=== PATIENT | male | born 1995 | race Caucasian/White ===

== ENCOUNTER 2017-11-23 21:09 | Emergency (ER) | payer SELFPAY ==
[~2017-11-23] VITALS: Ht 170.2 cm; Wt 65.9 kg
[2017-11-23 21:11] VITALS: BP 120/60; PULSE 100; RESP 15; TEMP 100.6; O2SAT 99
[2017-11-23] MEDS ORDERED: ACETAMINOPHEN 325 MG TAB PO ONE (21:30)
[2017-11-23 21:52] LABS: AUTOMATED NEUTROPHIL # 14.2 TH/MM3 (1.8-7.7); BASOPHIL % 0.2 % (0.0-2.0); EOSINOPHIL # 0.1 TH/MM3 (0-0.4); EOSINOPHIL % 0.4 % (0.0-4.0); HEMOGLOBIN 12.9 GM/DL (13.0-17.0); LYMPHOCYTE # 2.3 TH/MM3 (1.0-4.8); MEAN CELL VOLUME 91.8 FL (80.0-100.0); MEAN CORPUSCULAR HEMOGLOBIN 32.1 PG (27.0-34.0); MEAN PLATELET VOLUME 7.5 FL (7.0-11.0); MONO % 6.1 % (0.0-8.0); MONOCYTE # 1.1 TH/MM3 (0-0.9); NEUT % 80.3 % (16.0-70.0); PLATELET COUNT 268 TH/MM3 (150-450); RED BLOOD COUNT 4.03 MIL/MM3 (4.50-5.90); RED CELL DISTRIBUTION WIDTH 12.1 % (11.6-17.2); WHITE BLOOD COUNT 17.6 TH/MM3 (4.0-11.0)
[2017-11-23 22:02] LABS: BICARBONATE 28.6 MEQ/L (21.0-32.0); CALCIUM 8.2 MG/DL (8.5-10.1); CREATININE 0.84 MG/DL (0.60-1.30)
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
[2017-11-24 01:21] VITALS: BP 110/59; PULSE 88; RESP 16; TEMP 98; O2SAT 99
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
[2017-11-24] MEDS ORDERED: SODIUM CHLOR 0.9% 1000 ML INJ 1,000 ML IV ONE (02:15)
[2017-11-24] MEDS ORDERED: AZITHROMYCIN PWD FOR SUSP 1 GM PACKET PO ONE ×2 (02:15→03:00)
[2017-11-24] MEDS ORDERED: cefTRIAXone INJ 1,000 MG in SODIUM CHLORIDE 0.9% INJ 100 ML IV ONE (02:15)
[2017-11-24 02:49] LABS: BILIRUBIN, URINE NEG (NEG); BLOOD, URINE NEG (NEG); GLUCOSE,URINE NEG (NEG); KETONE, URINE NEG (NEG); MUCUS URINE FEW /lpf (OCC); NITRITE,URINE NEG (NEG); URINE COLOR YELLOW (YELLW/STRAW); URINE LEUKOCYTE ESTERASE LARGE (NEG)
[2017-11-24] MEDS ORDERED: HYDR-3516 PO (02:58)
[2017-11-24] MEDS ORDERED: DOXY100C PO (02:58)
[2017-11-24] MEDS ORDERED: ACETAMINOPHEN/HYDROcodone 325 MG/5 MG TAB PO ONE (03:00)
[2017-11-24] MEDS ORDERED: LIDOCAINE HCL 1% 50 ML VIAL IM ONE (03:00)
[2017-11-24 04:17] VITALS: BP 109/63; PULSE 74; RESP 18; TEMP 98.8; O2SAT 98
== END 2017-11-24 06:08 | disposition home or self-care (01) ==
LOC: NEPC 21:09
DX: S39.94XA Unspecified injury of external genitals, initial encounter (principal); N39.0 Urinary tract infection, site not specified; W22.8XXA Striking against or struck by other objects, initial encounter; Y93.55 Activity, bike riding
CPT/HCPCS: 76870; 80048; 81001; 83605; 85025; 87086; 87491; 87591; 93975; 96372; 99284; J0696

== ENCOUNTER 2017-11-25 18:47 | Observation (INO) | payer SELFPAY ==
[~2017-11-25] VITALS: Ht 165.1 cm; Wt 78.0 kg
[~2017-11-25 18:47] MED LIST: DOXY100C PO; HYDR-3516 PO
[2017-11-25 18:48] VITALS: BP 119/67; PULSE 104; RESP 26; TEMP 99.2; O2SAT 97
[2017-11-25] MEDS ORDERED: LEVOFLOXACIN 500 MG PREMIX INJ 100 ML IV ONE (20:00)
[2017-11-25] MEDS ORDERED: HYDROmorphone HCL PF 2 MG/ML VIAL IV PUSH ONE ×2 (20:00→21:30)
[2017-11-25] MEDS ORDERED: ONDANSETRON HCL 4 MG/2 ML VIAL IV PUSH ONE (20:00)
--- NOTE | 2017-11-25 20:17 | RADRPT ---
EXAM DATE/TIME: 11/25/2017 20:06 [facility] COMPARISON: No previous studies available for comparison. INDICATIONS : Chest discomfort. MEDICAL HISTORY : None. SURGICAL HISTORY : None. ENCOUNTER: Initial ACUITY: 1 day PAIN SCORE: 10 LOCATION: Bilateral chest FINDINGS: A single view of the chest demonstrates the lungs to be symmetrically aerated without evidence of mas s, infiltrate or effusion. The cardiomediastinal contours are unremarkable. Osseous structures are intact. CONCLUSION: 1. No acute cardiopulmonary disease. Saad Jones MD on November 25, 2017 at 20:15 Board Certified Radiologist. This report was verified electronically.
[2017-11-25 20:51] LABS: AUTOMATED NEUTROPHIL # 13.5 TH/MM3 (1.8-7.7); BASOPHIL # 0.1 TH/MM3 (0-0.2); BASOPHIL % 0.4 % (0.0-2.0); EOSINOPHIL # 0.1 TH/MM3 (0-0.4); EOSINOPHIL % 0.4 % (0.0-4.0); HEMATOCRIT 38.2 % (39.0-51.0); HEMOGLOBIN 13.2 GM/DL (13.0-17.0); LYMPH % 15.7 % (9.0-44.0); LYMPHOCYTE # 2.6 TH/MM3 (1.0-4.8); MEAN CELL VOLUME 92.7 FL (80.0-100.0); MEAN CORPUSCULAR HEMOGLOBIN 31.9 PG (27.0-34.0); MEAN CORPUSCULAR HGB CONC 34.4 % (32.0-36.0); MEAN PLATELET VOLUME 7.8 FL (7.0-11.0); MONO % 2.8 % (0.0-8.0); MONOCYTE # 0.5 TH/MM3 (0-0.9); NEUT % 80.7 % (16.0-70.0); PLATELET COUNT 293 TH/MM3 (150-450); RED BLOOD COUNT 4.12 MIL/MM3 (4.50-5.90); RED CELL DISTRIBUTION WIDTH 12.1 % (11.6-17.2); WHITE BLOOD COUNT 16.7 TH/MM3 (4.0-11.0)
[2017-11-25 21:00] VITALS: BP 124/66; PULSE 88; RESP 22; O2SAT 98
[2017-11-25 21:15] LABS: ALBUMIN 2.7 GM/DL (3.4-5.0); ALT (GPT) 16 U/L (12-78); AST (GOT) 12 U/L (15-37); BICARBONATE 28.3 MEQ/L (21.0-32.0); BLOOD UREA NITROGEN 9 MG/DL (7-18); CALCIUM 8.5 MG/DL (8.5-10.1); CHLORIDE 103 MEQ/L (98-107); CREATININE 0.75 MG/DL (0.60-1.30); GLOMERULAR FILTRATION RATE 129 ML/MIN (>89); GLUCOSE,RANDOM 84 MG/DL (74-106); MAGNESIUM 2.1 MG/DL (1.5-2.5); SODIUM (NA) 137 MEQ/L (136-145)
[2017-11-25 21:17] LABS: ALKALINE PHOSPHATASE 94 U/L (45-117); TOTAL BILIRUBIN ADULT 0.3 MG/DL (0.2-1.0); TOTAL PROTEIN 7.2 GM/DL (6.4-8.2)
[2017-11-25] MEDS ORDERED: KETOROLAC TROMETHAMINE 30 MG/ML (IVP) VIAL IV PUSH ONE (21:45)
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
[2017-11-25 22:38] LABS: BILIRUBIN, URINE NEG (NEG); BLOOD, URINE NEG (NEG); GLUCOSE,URINE NEG (NEG); KETONE, URINE NEG (NEG); MUCUS URINE FEW /lpf (OCC); NITRITE,URINE NEG (NEG); URINE COLOR YELLOW (YELLW/STRAW); URINE LEUKOCYTE ESTERASE NEG (NEG)
[2017-11-25 23:00] VITALS: BP 113/58; PULSE 66; RESP 18; O2SAT 99
--- NOTE | 2017-11-25 23:44 | RADRPT ---
EXAM DATE/TIME: 11/25/2017 22:53 [facility] COMPARISON: US TESTICLE W/DOPPLER, November 23, 2017, 22:04. INDICATIONS : Increased right scrotal swelling, pain, and redness. MEDICAL HISTORY : ADHD. Depression. SURGICAL HISTORY : Cleft palate repair. ENCOUNTER: Subsequent ACUITY: 3 days PAIN SCORE: 10/10 LOCATION: Bilateral scrotum. MEASUREMENTS: RIGHT TESTICLE: 4.9 x 3.8 x 3.5cm LEFT TESTICLE: 3.3 x 3.0 x 2.6cm FINDINGS: RIGHT TESTICLE: Persistent diffuse hyperemia. Right epididymis is also swollen and hyperemic, similar to before. The testis actually measures a little less in the interim. There is moderate right hydrocele fluid, perha ps slightly more. A right varicocele is again noted. LEFT TESTICLE: Homogeneous echotexture without intra or extratesticular mass. Blood flow is symmetric and within no rmal limits. No hydrocele or varicocele. Epididymis is within normal limits. SCROTUM: Diffuse but primarily right-sided scrotal thickening. CONCLUSION: 1. Persistent right epididymoorchitis. Right testis measures slightly smaller in the interim but slig htly increased hydrocele, currently moderate. 2. A unilateral varicocele is present on the right and should be viewed with at lease some suspicion. The possibility of intra-abdominal mass or adenopathy should be considered and a CT of the abdomen a nd pelvis is suggested if felt clinically indicated. Cale Loomis MD on November 25, 2017 at 23:39 Board Certified Radiologist. This report was verified electronically.
[2017-11-25] MEDS ORDERED: AZITHROMYCIN PWD FOR SUSP 1 GM PACKET PO ONE (23:45)
[2017-11-25] MEDS ORDERED: cefTRIAXone INJ 1,000 MG in SODIUM CHLORIDE 0.9% INJ 100 ML IV ONE (23:45)
[2017-11-26] MEDS ORDERED: IOHEXOL 350 MG/ML 10 ML VIAL (for RAD DIAG) IVCONTRAST ONE (00:03)
--- NOTE | 2017-11-26 00:16 | PD ---
Data Data Last Documented VS Vital Signs Date Time Temp Pulse Resp B/P (MAP) Pulse Ox O2 Delivery O2 Flow Rate FiO2 11/25/17 23:00 66 18 113/58 (76) 99 Room Air 11/25/17 18:48 99.2 Orders Orders Electrocardiogram (11/25/17 19:50) Complete Blood Count With Diff (11/25/17 19:50) Comprehensive Metabolic Panel (11/25/17 19:50) Blood Culture (11/25/17 19:50) Lipase (11/25/17 19:50) Urinalysis - C+S If Indicated (11/25/17 19:50) Magnesium (Mg) (11/25/17 19:50) Chest, Single Ap (11/25/17 19:50) Iv Access Insert/Monitor (11/25/17 19:50) Ecg Monitoring (11/25/17 19:50) Oximetry (11/25/17 19:50) Us Testicles W Doppler (11/25/17 19:50) Hydromorphone Pf Inj (Dilaudid Pf Inj) (11/25/17 20:00) Ondansetron Inj (Zofran Inj) (11/25/17 20:00) Levofloxacin 500 Mg Premix Inj (Levaquin (11/25/17 20:00) Hydromorphone Pf Inj (Dilaudid Pf Inj) (11/25/17 21:30) Lactic Acid Sepsis Protocol (11/25/17 21:29) Ketorolac Inj (Toradol Inj) (11/25/17 21:45) Ceftriaxone Inj (Rocephin Inj) (11/25/17 23:45) Azithromycin Powd Pack (Zithromax Powd P (11/25/17 23:45) Admit Order (Ed Use Only) (11/26/17 ) Vital Signs (Adult) Q4H (11/26/17 00:00) Diet Npo (11/26/17 Breakfast) Activity Bed Rest (11/26/17 00:00) Labs Laboratory Tests Test 11/25/17 20:30 11/25/17 21:43 11/25/17 22:05 White Blood Count 16.7 TH/MM3 Red Blood Count 4.12 MIL/MM3 Hemoglobin 13.2 GM/DL Hematocrit 38.2 % Mean Corpuscular Volume 92.7 FL Mean Corpuscular Hemoglobin 31.9 PG Mean Corpuscular Hemoglobin Concent 34.4 % Red Cell Distribution Width 12.1 % Platelet Count 293 TH/MM3 Mean Platelet Volume 7.8 FL Neutrophils (%) (Auto) 80.7 % Lymphocytes (%) (Auto) 15.7 % Monocytes (%) (Auto) 2.8 % Eosinophils (%) (Auto) 0.4 % Basophils (%) (Auto) 0.4 % Neutrophils # (Auto) 13.5 TH/MM3 Lymphocytes # (Auto) 2.6 TH/MM3 Monocytes # (Auto) 0.5 TH/MM3 Eosinophils # (Auto) 0.1 TH/MM3 Basophils # (Auto) 0.1 TH/MM3 CBC Comment DIFF FINAL Differential Comment Blood Urea Nitrogen 9 MG/DL Creatinine 0.75 MG/DL Random Glucose 84 MG/DL Total Protein 7.2 GM/DL Albumin 2.7 GM/DL Calcium Level 8.5 MG/DL Magnesium Level 2.1 MG/DL Alkaline Phosphatase 94 U/L Aspartate Amino Transf (AST/SGOT) 12 U/L Alanine Aminotransferase (ALT/SGPT) 16 U/L Total Bilirubin 0.3 MG/DL Sodium Level 137 MEQ/L Potassium Level 4.0 MEQ/L Chloride Level 103 MEQ/L Carbon Dioxide Level 28.3 MEQ/L Anion Gap 6 MEQ/L Estimat Glomerular Filtration Rate 129 ML/MIN Lipase 62 U/L Lactic Acid Level 1.1 mmol/L Urine Color YELLOW Urine Turbidity CLEAR Urine pH 8.0 Urine Specific [place] 1.023 Urine Protein TRACE mg/dL Urine Glucose (UA) NEG mg/dL Urine Ketones NEG mg/dL Urine Occult Blood NEG Urine Nitrite NEG Urine Bilirubin NEG Urine Urobilinogen 8.0 MG/DL Urine Leukocyte Esterase NEG Urine RBC 1 /hpf Urine WBC 2 /hpf Urine Mucus FEW /lpf Microscopic Urinalysis Comment CULT NOT INDICATED MDM Medical Record Reviewed: Yes Supervised Visit with EL: Yes Narrative Course I, Dr. Gilmore, have reviewed the advance practice practitioner's documentation and am in agreement, met with the patient face to face, made the diagnosis, and the medical decision making was done by me. *My assessment and Findings: CBC & BMP Diagram 11/25/17 20:30 Total Protein 7.2, Albumin 2.7 L, Calcium Level 8.5, Magnesium Level 2.1, Alkaline Phosphatase 94, Aspartate Amino Transf (AST/SGOT) 12 L, Alanine Aminotransferase (ALT/SGPT) 16, Total Bilirubin 0.3 Testicular ultrasound reveals epididymoorchitis with hydrocele Levaquin started IV. Rocephin and azithromycin added. Discussed with Dr. Dailey for [facility]. Diagnosis Primary Impression: Epididymoorchitis Admitting Information Admitting Physician Requests: Observation Woodrow Gilmore MD Nov 26, 2017 00:16
[2017-11-26] MEDS ORDERED: ACETAMINOPHEN 325 MG TAB PO PRN ×2 (00:30→09:00)
[2017-11-26] MEDS ORDERED: ONDANSETRON HCL 4 MG/2 ML VIAL IVP PRN (00:30)
[2017-11-26] MEDS ORDERED: NALOXONE HCL 0.4 MG/ML AMP IV PUSH PRN (00:30)
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
[2017-11-26 00:59] VITALS: BP 113/68; PULSE 67; RESP 20; TEMP 98.2; O2SAT 100
[2017-11-26] MEDS: MORPHINE SULFATE 2 MG/ML INJ IV PUSH PRN ×2 (01:10→05:08)
[2017-11-26] MEDS: DOXYCYCLINE HYCLATE 100 MG TAB PO SCH ×2 (01:10→09:06)
[2017-11-26] MEDS: SODIUM CHLORIDE 0.9% FLUSH 10 ML FLUSH IV FLUSH PRN ×2 (01:11→05:08)
[2017-11-26 02:40] VITALS: BP 111/52; PULSE 68; RESP 20; TEMP 98.1; O2SAT 100
[2017-11-26 05:45] LABS: AUTOMATED NEUTROPHIL # 9.1 TH/MM3 (1.8-7.7); BASOPHIL % 0.2 % (0.0-2.0); EOSINOPHIL # 0.2 TH/MM3 (0-0.4); EOSINOPHIL % 1.4 % (0.0-4.0); HEMATOCRIT 39.6 % (39.0-51.0); HEMOGLOBIN 13.9 GM/DL (13.0-17.0); LYMPH % 21.4 % (9.0-44.0); LYMPHOCYTE # 2.6 TH/MM3 (1.0-4.8); MEAN CELL VOLUME 93.5 FL (80.0-100.0); MEAN CORPUSCULAR HEMOGLOBIN 32.8 PG (27.0-34.0); MEAN CORPUSCULAR HGB CONC 35.1 % (32.0-36.0); MEAN PLATELET VOLUME 7.9 FL (7.0-11.0); MONO % 3.7 % (0.0-8.0); MONOCYTE # 0.5 TH/MM3 (0-0.9); NEUT % 73.3 % (16.0-70.0); PLATELET COUNT 273 TH/MM3 (150-450); RED BLOOD COUNT 4.24 MIL/MM3 (4.50-5.90); RED CELL DISTRIBUTION WIDTH 12.4 % (11.6-17.2); WHITE BLOOD COUNT 12.4 TH/MM3 (4.0-11.0)
[2017-11-26 06:11] LABS: BICARBONATE 28.1 MEQ/L (21.0-32.0); CALCIUM 8.5 MG/DL (8.5-10.1); CREATININE 0.8 MG/DL (0.60-1.30)
[2017-11-26 07:39] VITALS: BP 102/64; PULSE 76; RESP 18; TEMP 97.9; O2SAT 99
[2017-11-26] MEDS ORDERED: SODIUM CHLORIDE 0.9% FLUSH 10 ML FLUSH IV FLUSH SCH (09:00)
[2017-11-26] MEDS ORDERED: ACETAMINOPHEN/HYDROcodone 325 MG/5 MG TAB PO PRN (09:00)
[2017-11-26] MEDS ORDERED: MORPHINE SULFATE 2 MG/ML INJ IV PUSH PRN (09:00)
[2017-11-26] MEDS: ACETAMINOPHEN/HYDROcodone 325 MG/10 MG TAB PO PRN ×2 (09:17→13:27)
[2017-11-26] MEDS ORDERED: DIATRIZOATE MEGLUM/DIATRIZOATE SOD 9 ML CUP PO ONE (10:00)
[2017-11-26 11:56] VITALS: BP 121/67; PULSE 72; RESP 20; TEMP 97.7; O2SAT 97
[2017-11-26] MEDS ORDERED: KETOROLAC TROMETHAMINE 30 MG/ML (IVP) VIAL IV PUSH SCH (12:00)
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
--- NOTE | 2017-11-26 13:53 | EKG ---
Date Performed: 11/25/2017 Time Performed: 20:54:16 PTAGE: 22 years EKG: Sinus rhythm NORMAL ECG NO PREVIOUS TRACING 11/25/20172053 DOCTOR: Emily Carr Interpretating Date/Time 11/26/2017 13:52:17
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
[2017-11-26 14:45] VITALS: BP 108/55; PULSE 79; RESP 18; TEMP 98.2; O2SAT 97
[2017-11-26] MEDS ORDERED: NICOTINE 21 MG/24 HR PATCH T-DERMAL SCH (15:30)
[2017-11-26] MEDS ORDERED: REMOVE OLD PATCH T-DERMAL SCH (15:30)
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
[2017-11-26] MEDS ORDERED: LEVOFLOXACIN 500 MG PREMIX INJ 100 ML IV SCH (21:00)
[2017-11-27] MEDS ORDERED: cefTRIAXone INJ 1,000 MG in SODIUM CHLORIDE 0.9% INJ 100 ML IV SCH ×2
[2017-11-27] MEDS ORDERED: INFLUENZA VIRUS VACCINE (QUADRIVALENT) 0.5 ML SYR IM ONE (10:00)
== END 2017-11-26 15:56 | disposition home or self-care (01) ==
LOC: NEPE 18:47 → NEDA 11-26 00:02 → NEPFCDU 11-26 00:54
PROVIDERS: ADMIT Family Medicine; ATTEND Family Medicine
DX: N45.3 Epididymo-orchitis (principal); N43.3 Hydrocele, unspecified; R07.9 Chest pain, unspecified; F32.9 Major depressive disorder, single episode, unspecified; F17.200 Nicotine dependence, unspecified, uncomplicated; V18.4XXA Pedal cycle driver injured in noncollision transport accident in traffic accident, initial encounter; Y93.55 Activity, bike riding
CPT/HCPCS: 71045; 74177; 76870; 80048; 80053; 81001; 83605; 83690; 83735; 85025; 87040; 87491; 87591; 93005; 93975; 96365; 96375; 96376; 99285; G0378; J0696; J1170; J1885; J1956; J2270; J2405; Q9963; Q9967

== ENCOUNTER 2018-02-02 18:09 | Emergency (ER) | payer SELFPAY ==
[~2018-02-02] VITALS: Ht 170.2 cm; Wt 63.0 kg
[2018-02-02 18:21] VITALS: BP 117/76; PULSE 79; RESP 18; TEMP 97.8; O2SAT 96
[2018-02-02] MEDS ORDERED: SODIUM CHLOR 0.9% 1000 ML INJ 1,000 ML IV ONE (18:27)
[2018-02-02] MEDS ORDERED: NALOXONE HCL 0.4 MG/ML AMP IV PUSH PRN (18:30)
[2018-02-02] MEDS ORDERED: SODIUM CHLORIDE 0.9% FLUSH 10 ML FLUSH IVF PRN (18:30)
--- NOTE | 2018-02-02 18:38 | PD ---
HPI Chief Complaint: OD/ Ingestion Time Seen by Provider: 18:31 Travel History International Travel<30 days: No Contact w/Intl Traveler<30days: No Traveled to known affect area: No History of Present Illness HPI 22-year-old male brought in by EMS status post narcotic overdose. Patient received 0.4 mg Narcan IV in route with improved symptoms. Patient currently has no complaints. He is somnolent however arousable. He is answering questions appropriately. He complains of no pain. He admits to taking narcotics after being clean for several months. He thought he was taking a regular dose, but obviously took too much. He is embarrassed as he had an overdose in front of his mother. He has no known drug allergies. PFSH Past Medical History ADD: Yes ADHD: Yes Depression: Yes Cancer: No Cardiovascular Problems: No Diabetes: No Diminished Hearing: No Glaucoma: No Hepatitis: No Hiatal Hernia: No Hypertension: No Medical other: Yes (DEPRESSION) Respiratory: No Immunizations Current: Yes Migraines: No Seizures: No Thyroid Disease: No Ulcer: No Tetanus Vaccination: < 5 Years Past Surgical History Oral Surgery: Yes (CLEFT PALATE REPAIR) Pacemaker: No Other Surgery: Yes (BONE GRAFT IN HIP ABOUT 8 YRS AGO, CLEFT LIP REPAIR) Social History Alcohol Use: No Tobacco Use: Yes (1/2 PPD ) Substance Use: Yes (IVDU) Allergies-Medications (Allergen,Severity, Reaction): Coded Allergies: No Known Allergies (Verified Allergy, Unknown, 11/26/17) Reported Meds & Prescriptions Reported Meds & Active Scripts Active Hydrocodone-Acetaminophen 5-325 mg Tab 1 Tab PO Q6H PRN Doxycycline Hyclate 100 Mg Cap 100 Mg PO BID Review of Systems Except as stated in HPI: all other systems reviewed are Neg General / Constitutional: No: Fever, Chills Eyes: No: Visual changes HENT: No: Headaches Cardiovascular: No: Chest Pain or Discomfort Respiratory: No: Shortness of Breath Gastrointestinal: No: Abdominal Pain Genitourinary: No: Dysuria Musculoskeletal: No: Pain Skin: No Rash Neurologic: No: Weakness Psychiatric: No: Depression Endocrine: No: Polydipsia Hematologic/Lymphatic: No: Easy Bruising Physical Exam Narrative GENERAL: Patient appears somewhat lethargic, but he is appropriate in his answers and arousable by voice. SKIN: Warm and dry. Multiple tattoos. No obvious signs of cellulitis or other acute issues. HEAD: Atraumatic. Normocephalic. Nontender. EYES: Pupils equal and round. No scleral icterus. No injection or drainage. ENT: No nasal bleeding or discharge. Mucous membranes pink and moist. Pharynx is clear. Airways patent. NECK: Trachea midline. Supple and nontender per CARDIOVASCULAR: Regular rate and rhythm. RESPIRATORY: No accessory muscle use. Clear to auscultation. Breath sounds equal bilaterally. GASTROINTESTINAL: Abdomen soft, non-tender, nondistended. Hepatic and splenic margins not palpable. MUSCULOSKELETAL: Extremities without clubbing, cyanosis, or edema. No obvious deformities. NEUROLOGICAL: Awake and alert. No obvious cranial nerve deficits. Motor grossly within normal limits. Five out of 5 muscle strength in the arms and legs. Normal speech. PSYCHIATRIC: Appropriate mood and affect; insight and judgment normal. Data Data Last Documented VS Vital Signs Date Time Temp Pulse Resp B/P (MAP) Pulse Ox O2 Delivery O2 Flow Rate FiO2 02/02/18 18:21 97.8 79 18 117/76 (90) 96 Orders Orders Electrocardiogram (02/02/18 18:27) Complete Blood Count With Diff (02/02/18 18:27) Comprehensive Metabolic Panel (02/02/18 18:27) Urinalysis - C+S If Indicated (02/02/18 18:27) Chest, Single Ap (02/02/18 18:27) Iv Access Insert/Monitor (02/02/18 18:27) Ecg Monitoring (02/02/18 18:27) Oximetry (02/02/18 18:27) Naloxone Inj (Narcan Inj) (02/02/18 18:30) Sodium Chloride 0.9% Flush (Ns Flush) (02/02/18 18:30) Sodium Chlor 0.9% 1000 Ml Inj (Ns 1000 M (02/02/18 18:27) Drug Screen, Random Urine (02/02/18 18:27) Alcohol (Ethanol) (02/02/18 18:27) Salicylates (Aspirin) (02/02/18 18:27) Tylenol (Acetaminophen) (02/02/18 18:27) MDM Medical Decision Making Medical Screen Exam Complete: Yes Emergency Medical Condition: Yes Differential Diagnosis Accidental narcotic overdose. IV drug abuse. Lethargy. Need for Narcan. Narrative Course Patient is medically stable at time of exam. EKG is ordered. IV access is ordered. Labs ordered including CBC, CMP, urine drug screen, salicylates, Tylenol, urinalysis, and serum alcohol level. Patient is given 1000 mL normal saline bolus. 0.4 mg naloxone was ordered IV as a as needed order. For excessive sedation. Chest x-ray is ordered. 1900 hrs. patient is stable, and care of the patient will be turned over to Yazan Wilkins PA-C for final disposition Condition: Stable Puneet Porter February 02, 2018 18:38
[2018-02-02 18:46] VITALS: RESP 16; O2SAT 99
[2018-02-02 19:09] LABS: AUTOMATED NEUTROPHIL # 3.6 TH/MM3 (1.8-7.7); BASOPHIL # 0.1 TH/MM3 (0-0.2); BASOPHIL % 0.8 % (0.0-2.0); EOSINOPHIL % 0.5 % (0.0-4.0); HEMATOCRIT 40.6 % (39.0-51.0); HEMOGLOBIN 14.1 GM/DL (13.0-17.0); LYMPH % 33.1 % (9.0-44.0); LYMPHOCYTE # 2.2 TH/MM3 (1.0-4.8); MEAN CELL VOLUME 89.3 FL (80.0-100.0); MEAN CORPUSCULAR HEMOGLOBIN 31.1 PG (27.0-34.0); MEAN CORPUSCULAR HGB CONC 34.8 % (32.0-36.0); MEAN PLATELET VOLUME 7.5 FL (7.0-11.0); MONO % 10.3 % (0.0-8.0); MONOCYTE # 0.7 TH/MM3 (0-0.9); NEUT % 55.3 % (16.0-70.0); PLATELET COUNT 247 TH/MM3 (150-450); RED BLOOD COUNT 4.54 MIL/MM3 (4.50-5.90); RED CELL DISTRIBUTION WIDTH 13.9 % (11.6-17.2); WHITE BLOOD COUNT 6.6 TH/MM3 (4.0-11.0)
--- NOTE | 2018-02-02 19:12 | RADRPT ---
EXAM DATE/TIME: 02/02/2018 18:45 [facility] COMPARISON: CHEST SINGLE AP, November 25, 2017, 20:06. INDICATIONS : Syncopal episode and shortness of breath. MEDICAL HISTORY : None. SURGICAL HISTORY : None. ENCOUNTER: Initial ACUITY: 1 day PAIN SCORE: 0/10 LOCATION: chest FINDINGS: A single view of the chest demonstrates the lungs to be symmetrically aerated without evidence of mas s, infiltrate or effusion. The cardiomediastinal contours are unremarkable. Osseous structures are intact. CONCLUSION: No acute disease. Jamshid Olivas MD on February 02, 2018 at 19:09 Board Certified Radiologist. This report was verified electronically.
[2018-02-02 19:22] VITALS: BP 127/89; PULSE 107; RESP 19; O2SAT 100
[2018-02-02 19:31] LABS: ALBUMIN 3.8 GM/DL (3.4-5.0); AST (GOT) 29 U/L (15-37); BICARBONATE 29.1 MEQ/L (21.0-32.0); BLOOD UREA NITROGEN 21 MG/DL (7-18); CALCIUM 8.8 MG/DL (8.5-10.1); CHLORIDE 102 MEQ/L (98-107); CREATININE 1.15 MG/DL (0.60-1.30); GLOMERULAR FILTRATION RATE 79 ML/MIN (>89); GLUCOSE,RANDOM 90 MG/DL (74-106); SODIUM (NA) 140 MEQ/L (136-145)
[2018-02-02 19:32] LABS: ALT (GPT) 36 U/L (12-78)
[2018-02-02 19:34] LABS: ALKALINE PHOSPHATASE 66 U/L (45-117); TOTAL BILIRUBIN ADULT 0.6 MG/DL (0.2-1.0); TOTAL PROTEIN 7.5 GM/DL (6.4-8.2)
[2018-02-02 19:35] LABS: ACETAMINOPHEN LESS THAN 2.0 MCG/ML (10.0-30.0)
--- NOTE | 2018-02-02 20:08 | PD ---
Data Data Last Documented VS Vital Signs Date Time Temp Pulse Resp B/P (MAP) Pulse Ox O2 Delivery O2 Flow Rate FiO2 02/02/18 21:30 02/02/18 19:22 107 19 100 Room Air 02/02/18 18:46 2.00 02/02/18 18:21 97.8 Orders Orders Electrocardiogram (02/02/18 18:27) Complete Blood Count With Diff (02/02/18 18:27) Comprehensive Metabolic Panel (02/02/18 18:) Urinalysis - C+S If Indicated (02/02/18 18:27) Chest, Single Ap (02/02/18 18:27) Iv Access Insert/Monitor (02/02/18 18:) Ecg Monitoring (02/02/18 18) Oximetry (02/02/18 18:) Naloxone Inj (Narcan Inj) (02/02/18 18:30) Sodium Chloride 0.9% Flush (Ns Flush) (02/02/18 18:30) Sodium Chlor 0.9% 1000 Ml Inj (Ns 1000 M (02/02/18 18:27) Drug Screen, Random Urine (02/02/18 18:27) Alcohol (Ethanol) (02/02/18 18:27) Salicylates (Aspirin) (02/02/18 18:27) Tylenol (Acetaminophen) (02/02/18 18:27) Ed Discharge Order (02/02/18 21:18) Labs Laboratory Tests Test 02/02/18 18:40 02/02/18 19:55 White Blood Count 6.6 TH/MM3 Red Blood Count 4.54 MIL/MM3 Hemoglobin 14.1 GM/DL Hematocrit 40.6 % Mean Corpuscular Volume 89.3 FL Mean Corpuscular Hemoglobin 31.1 PG Mean Corpuscular Hemoglobin Concent 34.8 % Red Cell Distribution Width 13.9 % Platelet Count 247 TH/MM3 Mean Platelet Volume 7.5 FL Neutrophils (%) (Auto) 55.3 % Lymphocytes (%) (Auto) 33.1 % Monocytes (%) (Auto) 10.3 % Eosinophils (%) (Auto) 0.5 % Basophils (%) (Auto) 0.8 % Neutrophils # (Auto) 3.6 TH/MM3 Lymphocytes # (Auto) 2.2 TH/MM3 Monocytes # (Auto) 0.7 TH/MM3 Eosinophils # (Auto) 0.0 TH/MM3 Basophils # (Auto) 0.1 TH/MM3 CBC Comment DIFF FINAL Differential Comment Blood Urea Nitrogen 21 MG/DL Creatinine 1.15 MG/DL Random Glucose 90 MG/DL Total Protein 7.5 GM/DL Albumin 3.8 GM/DL Calcium Level 8.8 MG/DL Alkaline Phosphatase 66 U/L Aspartate Amino Transf (AST/SGOT) 29 U/L Alanine Aminotransferase (ALT/SGPT) 36 U/L Total Bilirubin 0.6 MG/DL Sodium Level 140 MEQ/L Potassium Level 3.4 MEQ/L Chloride Level 102 MEQ/L Carbon Dioxide Level 29.1 MEQ/L Anion Gap 9 MEQ/L Estimat Glomerular Filtration Rate 79 ML/MIN Salicylates Level 1.9 MG/DL Acetaminophen Level LESS THAN 2.0 MCG/ML Ethyl Alcohol Level LESS THAN 3 MG/DL Urine Color YELLOW Urine Turbidity CLEAR Urine pH 5.5 Urine Specific [place] 1.025 Urine Protein 30 mg/dL Urine Glucose (UA) NEG mg/dL Urine Ketones NEG mg/dL Urine Occult Blood NEG Urine Nitrite NEG Urine Bilirubin NEG Urine Urobilinogen LESS THAN 2.0 MG/DL Urine Leukocyte Esterase NEG Urine WBC 2 /hpf Urine Hyaline Casts 23 /lpf Urine Mucus FEW /lpf Microscopic Urinalysis Comment CULT NOT INDICATED Urine Opiates Screen NEG Urine Barbiturates Screen NEG Urine Amphetamines Screen POS Urine Benzodiazepines Screen NEG Urine Cocaine Screen POS Urine Cannabinoids Screen POS MDM Supervised Visit with EL: Yes Narrative Course Patient CARE assume from Puneet Porter at 1700, reviewed his documentation and agree with as above. Patient appears well in obvious distress, is tolerating p.o. in the emergency department, no indication for further narcotic doses while here. He has been observed for 3 hours in the emergency department. He is remained hemodynamically stable, discussed with him need follow-up store [facility] act. He would like to go home, at this time he is clinically sober able to make his own medical decisions, his mother is here who will take him home. He is stable for discharge Diagnosis Primary Impression: Narcotic overdose Referrals: [facility] Disposition: 01 DISCHARGE HOME Condition: Stable Rivera Bunn MD February 02, 2018 20:08
[2018-02-02 20:16] LABS: BILIRUBIN, URINE NEG (NEG); BLOOD, URINE NEG (NEG); GLUCOSE,URINE NEG (NEG); HYALINE CAST, URINE 23 /lpf (RARE); KETONE, URINE NEG (NEG); MUCUS URINE FEW /lpf (OCC); NITRITE,URINE NEG (NEG); PH, URINE 5.5 (5.0-8.5); URINE COLOR YELLOW (YELLW/STRAW); URINE LEUKOCYTE ESTERASE NEG (NEG)
--- NOTE | 2018-02-03 14:22 | EKG ---
Date Performed: 02/02/2018 Time Performed: 18:34:19 PTAGE: 22 years EKG: Sinus rhythm NORMAL ECG Since the PREVIOUS TRACING , no significant change noted PREVIOUS TRACIN11/25/2017 20.54 DOCTOR: Emily Carr Interpretating Date/Time 02/03/2018 14:18:10
== END 2018-02-02 21:32 | disposition home or self-care (01) ==
LOC: NEPD 18:09
DX: T40.601A Poisoning by unspecified narcotics, accidental (unintentional), initial encounter (principal); F17.200 Nicotine dependence, unspecified, uncomplicated; R55 Syncope and collapse
CPT/HCPCS: 71045; 80053; 80307; 81001; 85025; 93005; 96360; 99285; J7030